=== PATIENT | female | born 1960 | race Caucasian/White ===

== ENCOUNTER → 2018-04-24 | Day surgery (SDC) | payer MEDICARE ==
[~2018-04-24] VITALS: Ht 157.4 cm; Wt 107.0 kg
[~2018-04-24] MED LIST: ANTIVERT/2525 M1 PO; ASPIRIN81 MG PO; CELEXA40 MG PO; CYCLOBENZAPRINE5 M3 PO; CYMBALTA20 MG PO; IBUPROFEN600 MG PO; LEVOTHYROXIN0.075 MG PO; LIDOCAINE VISC100 ML MM; MOTRIN800 MG PO; OMEPRAZOLE D/R20 MG PO; OMEPRAZOLE40 MG PO; PEPCID40 MG PO; PERCOCET 325 MG1 TA7 PO; PRILOSEC20 M1 PO; PROTONIX40 MG PO; PROZAC40 M1 PO; ROBAXIN750 MG PO; TRAMADOL HCL50 MG PO; TYLENOL W/CODEI1 TA4 PO; VITAMIN D-32000 UNI1 PO; WYMOX500 MG PO; Zofran4 MG PO
--- NOTE | ~2018-04-24 | O ---
[place], [place] OPERATIVE NOTE NAME: BRITTNEY CASTRO UNIT #: [id number] ROOM: DOCTOR: SHERRY MARTINEZ MD BIRTHDATE: [birth year] DOS: 04/24/2018 GASTROENDOSCOPIC REPORT SUBJECTIVE: This is a 58-year-old patient who was presented with chief complaint of guaiac positivity, on omeprazole 20 mg daily and on ibuprofen. ALLERGIES: No known medications. FAMILY HISTORY: Colon cancer in the family, father. PAST SURGICAL HISTORY: Hysterectomy. PAST MEDICAL HISTORY: Depression. SOCIAL HISTORY: Smoker, nonalcohol consumer. PROCEDURE: Today's procedure part of investigation is panendoscopy plus biopsy and colonoscopy. PREMEDICATION: Propofol. SCOPE: Olympus forward-viewing gastroscope Q10 video. REPORT: After putting the patient in left lateral position and application of lubricant to the scope, the scope was introduced. Thereafter, under direct visualization, I advanced through the length of esophagus without difficulty. Small hiatal hernia was noticed. Gastric pouch was entered, gastritis. Antral biopsy obtained. Duodenal bulb, second and third were within normal limit. The patient extubated, tolerated the procedure well. IMPRESSION: Gastritis, small hiatal hernia. PLAN AND DISCUSSION: Ibuprofen is the culprit in induction of gastritis, guaiac positivity. She can afford to have increasing Prilosec to 20 mg b.i.d., particularly that she is taking ibuprofen 600 mg t.i.d. I am going to proceed with colonoscopic evaluation and colonic screening. GASTROENDOSCOPIC REPORT INDICATIONS: The patient has presented with a colonic screening. PROCEDURE: Today's procedure part of investigation is colonoscopy. PREMEDICATION: Propofol. SCOPE: Olympus forward-viewing colonoscope 10L video. REPORT: After putting the patient in left lateral position and application of lubricant to the scope, the scope was introduced; thereafter, under direct [place], [place] OPERATIVE NOTE NAME: BRITTNEY CASTRO UNIT #: [id number] ROOM: DOCTOR: SHERRY MARTINEZ MD BIRTHDATE: [birth year] visualization, I advanced through the length of colon without difficulty. Base of the cecum explored, appendiceal orifice identified and ileocecal valve was defined. Right at the surface of the ileocecal valve, there is a broad-based polypoid lesion, which appears to be at least adenomatous. This was biopsied with very difficult angle partially snare polypectomized and samples was removed. Air was suctioned out. The patient was extubated, tolerated the procedure well. IMPRESSION AND PLAN: A flat polypoid lesion at the surface of the ileocecal valve ____. We are going to await pathology report, ruling out dysplastic cells or adenomatous cells. If it is so, she may need reattempt to see if further snare polypectomy in depth is possible; however, if the dysplastic cells are noticed and surgical exploration becomes the choice. We will follow up with this patient in GI clinic and routine followup, otherwise with you in office. I thank you very much indeed for your kind referral. SHERRY MARTINEZ MD CM:OPRECORD:OPERATIVE NOTE [id number] SHERRY MARTINEZ MD 04/24/18 1139 interface
[2018-04-24 09:45] VITALS: BP 150/95
[2018-04-24 10:39] VITALS: BP 141/77
[2018-04-24 11:10] VITALS: BP 141/71
== END | disposition home or self-care (01) ==
LOC: SDC 04-22 16:15
DX: D12.0 Benign neoplasm of cecum (principal); K29.50 Unspecified chronic gastritis without bleeding; K44.9 Diaphragmatic hernia without obstruction or gangrene; K21.9 Gastro-esophageal reflux disease without esophagitis; F32.9 Major depressive disorder, single episode, unspecified; F17.210 Nicotine dependence, cigarettes, uncomplicated; I12.9 Hypertensive chronic kidney disease with stage 1 through stage 4 chronic kidney disease, or unspecified chronic kidney disease; N18.2 Chronic kidney disease, stage 2 (mild); E66.9 Obesity, unspecified; E03.9 Hypothyroidism, unspecified; F41.9 Anxiety disorder, unspecified; Z91.013 Allergy to seafood; Z79.899 Other long term (current) drug therapy; Z90.710 Acquired absence of both cervix and uterus; Z98.890 Other specified postprocedural states; Z68.41 Body mass index [BMI] 40.0-44.9, adult; Z80.0 Family history of malignant neoplasm of digestive organs; Z83.3 Family history of diabetes mellitus; Z82.49 Family history of ischemic heart disease and other diseases of the circulatory system

== ENCOUNTER → 2019-01-27 | Outpatient (CLI) | payer MEDICARE | END | disposition home or self-care (01) | LOC: US 15:47 | DX: E03.9 Hypothyroidism, unspecified (principal) ==

== ENCOUNTER → 2019-06-03 | Outpatient (CLI) | payer MEDICARE ==
[2019-06-03 12:41] LABS: BASO # 0.1 10*3/uL (0.0-0.1); BASO % 0.9 % (0.0-1.0); EOS # 0.2 10*3/uL (0.0-0.4); EOS % 1.5 % (1.0-4.0); HEMATOCRIT 47.1 % (37.0-47.0); HEMOGLOBIN 15.7 g/dl (12.0-16.0); LYMPH # 3.1 10*3/uL (1.3-4.4); LYMPH % 29.2 % (27.0-41.0); MEAN CELL VOLUME 98.1 fl (81.0-99.0); MEAN CORPUSCULAR HGB 32.7 pg (27.0-31.0); MEAN CORPUSCULAR HGB CONC 33.3 g/dl (33.0-37.0); MEAN PLATELET VOLUME 10.8 fl (9.6-12.3); MONO # 0.6 10*3/uL (0.1-1.0); MONO % 5.8 % (3.0-9.0); NEUT # 6.5 10*3/uL (2.3-7.9); NEUT % 62.2 % (47.0-73.0); PLATELET COUNT AUTOMATED 350 10*3/uL (130-400); RED CELL DISTRI WIDTH 13.5 % (0-14.5); WHITE BLOOD COUNT 10.5 10*3/uL (4.8-10.8)
[2019-06-03 13:15] LABS: ALBUMIN 3.9 gm/dl (3.1-4.5); CREATININE 1.22 mg/dL (0.55-1.02); THYROXINE (T4) TOTAL 7.7 ug/dl (4.8-13.9); TOTAL PROTEIN 8.2 gm/dL (6.4-8.2)
[2019-06-03 13:23] LABS: THYROID STIM HORMONE (HS) 5.68 uIU/ml (0.358-4.75)
== END | disposition home or self-care (01) ==
LOC: LAB 11:16
PROVIDERS: Nurse Practitioner Family
DX: M47.816 Spondylosis without myelopathy or radiculopathy, lumbar region (principal); M48.07 Spinal stenosis, lumbosacral region; M25.78 Osteophyte, vertebrae; M41.86 Other forms of scoliosis, lumbar region; I70.0 Atherosclerosis of aorta; E03.9 Hypothyroidism, unspecified; E53.9 Vitamin B deficiency, unspecified; F41.8 Other specified anxiety disorders; F41.9 Anxiety disorder, unspecified

== ENCOUNTER 2021-03-27 14:21 | Emergency (ER) | payer MEDICARE ==
[2021-03-27] MEDS ORDERED: HYDROCODONE-AC1 EAC1 PO (16:49)
[2021-03-27] MEDS ORDERED: MEDROL DOSEPAK4 MG PO (16:49)
== END 2021-03-27 16:54 | disposition home or self-care (01) ==
LOC: ED 14:21
DX: S39.012A Strain of muscle, fascia and tendon of lower back, initial encounter (principal); Z91.013 Allergy to seafood; Z79.899 Other long term (current) drug therapy; Z90.710 Acquired absence of both cervix and uterus; Z98.51 Tubal ligation status; X58.XXXA Exposure to other specified factors, initial encounter; Y93.89 Activity, other specified; Y92.89 Other specified places as the place of occurrence of the external cause; Y99.8 Other external cause status

== ENCOUNTER 2021-04-26 17:53 | Emergency (ER) | payer MEDICARE ==
[~2021-04-26] VITALS: Ht 157.4 cm; Wt 111.1 kg
[~2021-04-26 17:53] MED LIST changes: +HYDROCODONE-AC1 EAC1 PO; +MEDROL DOSEPAK4 MG PO
[2021-04-26] MEDS ORDERED: PREDNISONE20 M1 PO (19:41)
== END 2021-04-26 20:00 | disposition home or self-care (01) ==
LOC: ED 17:53
DX: G51.0 Bell's palsy (principal); Z91.013 Allergy to seafood; Z79.899 Other long term (current) drug therapy; Z90.710 Acquired absence of both cervix and uterus; Z98.51 Tubal ligation status

== ENCOUNTER → 2022-07-03 | Outpatient (CLI) | payer MEDICARE ==
[~2022-07-03] MED LIST changes: +PREDNISONE20 M1 PO
== END | disposition home or self-care (01) ==
LOC: US 14:13
PROVIDERS: ATTEND Nurse Practitioner Family
DX: E04.2 Nontoxic multinodular goiter (principal)

== ENCOUNTER → 2022-11-17 | Outpatient (CLI) | payer MEDICARE | END | disposition home or self-care (01) | LOC: RAD 13:40 | PROVIDERS: ATTEND Nurse Practitioner Family | DX: M47.22 Other spondylosis with radiculopathy, cervical region (principal); M25.78 Osteophyte, vertebrae; M47.816 Spondylosis without myelopathy or radiculopathy, lumbar region; M48.061 Spinal stenosis, lumbar region without neurogenic claudication ==

== ENCOUNTER → 2023-01-17 | Outpatient (CLI) | payer MEDICARE, MEDICAID | END | disposition home or self-care (01) | LOC: MRI 13:00 | PROVIDERS: ATTEND Orthopaedic Surgery | DX: M50.821 Other cervical disc disorders at C4-C5 level (principal); M50.823 Other cervical disc disorders at C6-C7 level; M50.822 Other cervical disc disorders at C5-C6 level; M47.812 Spondylosis without myelopathy or radiculopathy, cervical region; M51.86 Other intervertebral disc disorders, lumbar region ==